=== PATIENT | female | born 1985 | race Caucasian/White ===

== ENCOUNTER 2021-12-18 16:11 | Emergency (ER) | payer BC | END 2021-12-18 19:37 | disposition home or self-care (01) | LOC: MW.ED 16:11 | DX: S99.911A Unspecified injury of right ankle, initial encounter (principal); R60.0 Localized edema; W17.89XA Other fall from one level to another, initial encounter | CPT/HCPCS: 73590-26-RT; 73590-RT; 73610-26-RT; 73610-RT; 99281; 99283-25 ==